=== PATIENT | male | born 1985 | race Two or more races ===

== ENCOUNTER 2022-10-18 10:55 | Emergency (ER) | payer MEDICAID, SELFPAY ==
[2022-10-18 11:12] VITALS: BP 118/80; PULSE 98; RESP 18; TEMP 36.5; O2SAT 97; BMI 42.9
--- NOTE | 2022-10-18 11:36 | ED_ITS ---
HPI - Back Pain/Injury General Chief Complaint: Back Pain/Injury Stated Complaint: Back pain Time Seen by Provider: 10/18/22 11:35 History of Present Illness HPI Narrative: Patient complains of flare up of his chronic back pain He has a chronic back pain since an accident in 2013 and never regained full use of his legs and uses a walker he denies any change in his ability to move his legs or walk there is no new weakness or numbness no incontinence, he denies any dysuria, no vomiting no fever There is no accident no trauma recently, no fever no IV drug use no chest pain no abdominal Related Data Previous Rx's Medication Instructions Recorded ibuprofen 600 mg tablet 600 mg PO Q6H PRN pain #20 tabs 10/18/22 lorazepam 1 mg tablet (Ativan) 1 mg PO BID PRN Muscle relaxer #10 10/18/22 tabs oxycodone 5 mg tablet 5 mg PO Q6H PRN pain #14 tabs 10/18/22 prednisone 20 mg tablet 60 mg PO DAILY 3 days #9 tabs 10/18/22 Allergies Allergy/AdvReac Type Severity Reaction Status Date / Time No Known Allergies Allergy Verified 10/18/22 11:12 [facility] Past Medical History Source: nursing notes reviewed Social History Social History Advance Directives: No Advance Directives Information Provided: No Physical Exam Vital Signs: Vital Signs: Last Vital Signs Temp 97.7 F 10/18/22 11:12 Pulse 98 10/18/22 11:12 Resp 18 10/18/22 11:12 BP 118/80 10/18/22 11:12 Pulse Ox 97 10/18/22 11:12 O2 Del Method 10/18/22 11:12 BMI result Body Mass Index 42.9 General appearance mildly uncomfortable Head is normocephalic atraumatic Neck is supple nontender Chest clear to auscultation bilateral The heart no murmur Abdomen soft nontender The back had tenderness along the left side of the lower lumbar soft tissue region, no focal bony tenderness, no CVA tenderness, skin of the back was normal Extremity a exam is limited due to pre-existing weakness in both legs since a trauma many years ago, but patient says it is the same as it always is No focal new neurologic deficits Course Course Course Narrative: Urinalysis was negative for infection He responded well to analgesics in the ER and felt much better and is discharged home stable, with his pre-existing disability unchanged, no new weakness or change in his ability to move his legs are ambulate Medications Administered Discontinued Medications Generic Name Dose Route Start Last Admin Trade Name Stoney PRN Reason Stop Dose Admin Ketorolac Tromethamine 30 mg 10/18/22 11:43 10/18/22 11:55 Ketorolac Tromethamine 30 Mg/Ml Vial IM 10/18/22 11:44 30 mg ONCE ONE Administration Lorazepam 1 mg 10/18/22 11:43 10/18/22 11:55 Lorazepam 1 Mg Tablet PO 10/18/22 11:44 1 mg ONCE ONE Administration Oxycodone HCl 10 mg 10/18/22 11:43 10/18/22 11:55 Oxycodone Hcl Immed Release 5 Mg Tablet PO 10/18/22 11:44 10 mg ONCE ONE Administration Medical Decision Making Lab Data Labs: Lab Results 10/18/22 Range/Units 14:00 Urine Color Dark Yellow Urine Appearance Clear Urine pH 6.0 (5.0-9.0) Ur Specific [place] >= 1.030 H (1.005-1.025) Urine Protein 30 (1+) H (Neg-Trace) mg/dL Urine Glucose (UA) Negative (Negative) mg/dL Urine Ketones Trace (Negative) mg/dL Urine Blood Negative (Negative) Urine Nitrite TNP Ur Leukocyte Esterase Trace H (Negative) Urine RBC 0-2 (0-2) /HPF Urine WBC 0-5 (0-5) /HPF Ur Squamous Epith Cells 0-2 (0-2) /HPF Urine Bacteria None Seen (None Seen) Hyaline Casts 0-2 (0-2) /LPF Discharge Plan Discharge Clinical Impression: Back pain Patient Disposition: Home, Self-Care Additional Instructions: Your urine test was negative for infection Your back pain was improved with pain medicine so use prescriptions for pain medicine to use as needed Follow with your primary doctor if pain continues I also wrote for a few days of steroid prednisone which may rib reduce pain and inflammation around the nerve that is shooting down left leg Return any time any worse condition or any concerns Prescriptions: New prednisone 20 mg tablet 60 mg PO DAILY 3 Days Qty: 9 0RF ibuprofen 600 mg tablet 600 mg PO Q6H PRN (Reason: pain) Qty: 20 0RF lorazepam [Ativan] 1 mg tablet 1 mg PO BID PRN (Reason: Muscle relaxer) Qty: 10 0RF oxycodone 5 mg tablet 5 mg PO Q6H PRN (Reason: pain) Qty: 14 0RF Rx Instructions: Partial Fill upon patient request. Interventions: ED Discharge Assessment Last Done: 10/18/22 15:06 Discharge Date/Time: 10/18/22 15:07
[2022-10-18] MEDS: LORazepam 1 MG TABLET PO (11:55)
[2022-10-18] MEDS: Ketorolac Tromethamine 30 MG/ML VIAL IM (11:55)
[2022-10-18] MEDS: oxyCODONE HCl Immed Release 5 MG TABLET 10 MG PO (11:55)
[2022-10-18 14:24] LABS: Appearance Urine Clear; Color Urine Dark Yellow; Glucose Urine UA Negative (Negative); Leukocyte Esterase Urine Trace (Negative); Specific Gravity - Urine >= 1.030 (1.005-1.025); UMIC TRIGGER UACC YES; Urine Blood Negative (Negative); Urine Ketones Trace mg/dL (Negative); Urine Protein 30 (1+) mg/dL (Neg-Trace)
[2022-10-18 14:33] LABS: Bacteria Urine None Seen (None Seen); Hyaline Casts Urine 0-2 /LPF (0-2); RBC Urine 0-2 /HPF (0-2); Squamous Epithelial Cell Urine 0-2 /HPF (0-2); WBC Urine 0-5 /HPF (0-5)
== END 2022-10-18 15:07 | disposition home or self-care (01) ==
PROVIDERS: Physician Assistant Medical; Emergency Provider Emergency Medicine
DX: M54.50 Low back pain, unspecified (principal)
CPT/HCPCS: 81001; 96372; 99283; 99284; J1885

== ENCOUNTER 2022-11-05 16:02 | Emergency (ER) | payer MEDICAID, SELFPAY ==
--- NOTE | ~2022-11-05 | XR_ITS ---
EXAMINATION: XR ABDOMEN KUB CLINICAL INDICATION: Pain COMPARISON: None TECHNIQUE: AP view of the abdomen. FINDINGS: The bowel gas pattern is normal with no evidence of ileus or obstruction. No unusual soft tissue calcifications are noted. Spinal hardware seen in the lower thoracic and upper lumbar spine. XR/XR KUB IMPRESSION: Unremarkable bowel gas pattern.
--- NOTE | ~2022-11-05 | US_ITS ---
EXAMINATION: US ABDOMEN LIMITED CLINICAL INFORMATION: Right upper quadrant pain. COMPARISON: None TECHNIQUE: Real-time imaging of the right upper quadrant abdominal viscera. FINDINGS: Pancreas is not seen due to bowel gas. The liver is within normal limits. No lesion is seen. No ductal dilatation. The gallbladder demonstrates gallstones. Positive Tao sign but no evidence of gallbladder wall edema. Common duct is 4 mm within normal limits. The right kidney measures 11.2 cm within normal limits. US/US abdomen limited IMPRESSION: Cholelithiasis here and positive Tao sign but no evidence for gallbladder wall thickening or edema. Correlation recommended clinically. No ductal dilatation..
--- NOTE | ~2022-11-05 | XR_ITS ---
EXAMINATION: XR CHEST CLINICAL INFORMATION: Chest pain COMPARISON: None TECHNIQUE: 2 views of the chest were obtained. FINDINGS: No significant abnormality is noted involving the heart, lungs, mediastinum, bony thorax or soft tissues. There are posterior Henson rods in the lumbar spine. XR/XR chest 2V IMPRESSION: Unremarkable chest examination.
[2022-11-05 16:04] VITALS: BP 128/78; PULSE 88; RESP 18; TEMP 36; O2SAT 96; BMI 41.6
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
--- NOTE | 2022-11-05 16:06 | ECG_ITS ---
Test Reason : ABDOMINAL PAIN Blood Pressure : / mmHG Vent. Rate : 095 BPM Atrial Rate : 095 BPM P-R Int : 132 ms QRS Dur : 094 ms QT Int : 372 ms P-R-T Axes : 061 051 043 degrees QTc Int : 467 ms Normal sinus rhythm Normal ECG No previous ECGs available Referred By: Gaviota Fiore Electronically Signed By:MARIA DOLORES KAISER
[2022-11-05 17:04] LABS: COVID-19 Test Negative (Negative); IDNOW Serial# 16C4AD1C
[2022-11-05 17:17] LABS: Troponin-I High Sensitivity < 3.5 ng/L (<3.5-35.0)
[2022-11-05 17:18] LABS: B Type Natriuretic Peptide < 10 pg/mL (<100)
[2022-11-05 17:40] LABS: Appearance Urine Clear; Color Urine Yellow; Glucose Urine UA Negative (Negative); Leukocyte Esterase Urine Negative (Negative); Nitrite Urine Negative (Negative); PH 5.5 (5.0-9.0); Specific Gravity - Urine 1.025 (1.005-1.025); Urine Blood Negative (Negative); Urine Ketones Negative (Negative); Urine Protein Negative (Neg-Trace)
[2022-11-05 17:50] LABS: Amphetamine Screen Urine Not Detected (Not Detect); Barbiturates, Urine Not Detected (Not Detect); Benzodiazepines Screen Urine POSITIVE (Not Detect); Cannabinoid Screen Urine Not Detected (Not Detect); Cocaine Screen Urine Not Detected (Not Detect); Fentanyl, urine Not Detected (Not Detect); Opiate Screen Urine Not Detected (Not Detect); Phencyclidine Screen Urine Not Detected (Not Detect)
[2022-11-05 17:51] LABS: Alanine Aminotransferase 54 U/L (0-40); Albumin Level 4.2 g/dL (3.5-5.0); Alkaline Phosphatase 114 U/L (39-117); Anion Gap 15 (12-20); Aspartate Amino Transferase 75 U/L (5-37); Bilirubin Total 0.4 mg/dL (0.0-1.0); Blood Urea Nitrogen 18 mg/dL (9-16); Calcium 8.9 mg/dL (8.4-10.2); Carbon Dioxide 23 mmol/L (22-29); Chloride 108 mmol/L (96-108); Creatinine Clr Calc Pharmacy 129.2; Estimated Glomerular Filt Rate > 60; Glucose Random 116 mg/dL (60-115); Magnesium 2.2 mg/dL (1.6-2.6); Potassium 4.2 mmol/L (3.3-5.1); Sodium 142 mmol/L (135-145); Total Protein 7.1 g/dL (6.5-8.0)
[2022-11-05 17:53] LABS: Basophils Percent Auto 0.5 % (0-2); Eosinophils Absolute Auto 0.2 X10*3/uL (0.0-0.4); Eosinophils Percent Auto 2.5 % (0-4); Hematocrit 43.1 % (42.0-52.0); Hemoglobin 14.2 g/dl (14.0-18.0); Imm Gran Abs Auto 0.04 X10*3/uL (0.00-0.03); Imm Gran Pct Auto 0.5 % (0.0-0.4); Lymphocytes Absolute Auto 1.5 X10*3/uL (1.2-4.9); Lymphocytes Percent Auto 19.2 % (20-40); Mean Corpuscular HGB Conc 32.9 g/dl (31.0-36.0); Mean Corpuscular Hemoglobin 28.5 pg (27.0-33.0); Mean Corpuscular Volume 86.4 fL (80.0-98.0); Mean Platelet Volume 10.2 fL (9.4-12.4); Monocytes Absolute Auto 0.4 X10*3/uL (0.1-1.2); Monocytes Percent Auto 4.5 % (2-11); Neutrophils Absolute Auto 5.9 x10*3/uL (2.0-8.3); Neutrophils Percent Auto 72.8 % (45-73); Platelet Count 266 X10*3/uL (160-400); Red Blood Count 4.99 X10*6/uL (4.60-5.80); Red Cell Distribution Width 12.3 % (11.0-16.0)
[2022-11-05 18:00] VITALS: BP 130/82; PULSE 85; RESP 16; TEMP 36.7; O2SAT 98
[2022-11-05] MEDS: Ondansetron ODT 4 MG TAB.RAPDIS TRANSLINGU (18:40)
[2022-11-05] MEDS: Lidocaine HCl Viscous 2 % 15 ML SOLUTION MUCOUS MEM (18:41)
[2022-11-05] MEDS: Magnesium Hydrox/Alum Hydrox 30 ML ORAL.SUSP PO (18:41)
== END 2022-11-05 22:06 | disposition home or self-care (01) ==
PROVIDERS: Physician Assistant Medical; Emergency Provider Student in an Organized Health Care Education/Training Program
DX: K80.20 Calculus of gallbladder without cholecystitis without obstruction (principal); R06.02 Shortness of breath; Z20.822 Contact with and (suspected) exposure to COVID-19; Z79.899 Other long term (current) drug therapy
CPT/HCPCS: 71046; 74018; 76705; 80053; 80307; 81003; 83735; 83880; 84484; 85025; 87635; 93005; 99284

== ENCOUNTER 2023-04-21 22:01 | Emergency (ER) | payer MEDICAID, SELFPAY ==
--- NOTE | ~2023-04-21 | CT_ITS ---
EXAMINATION: CT ABDOMEN AND PELVIS WITHOUT CONTRAST CLINICAL INFORMATION: Bilateral flank pain radiating to testicles COMPARISON: None available. TECHNIQUE: Multidetector volumetric imaging was performed from the superior aspect of the liver through the pubic symphysis. Sagittal and coronal reformatted images were obtained on the technologist's workstation. This CT examination was performed using dose optimization techniques as appropriate, variously including the following: *Automated exposure control *Adjustment of mA and/or kV according to patient size (this includes techniques or standardized protocols for targeted exams where dose is matched to indication/reason for exam; i.e. extremities or head) *Use of iterative reconstruction technique DLP: 846 mGy-cm FINDINGS: LUNG BASES: The visualized lung bases are unremarkable. LIVER, GALLBLADDER, AND BILIARY TREE: The liver is normal in size, shape, and attenuation. No focal hepatic lesion or biliary ductal dilatation is identified on this noncontrast exam. The gallbladder is unremarkable. PANCREAS: Mild fatty atrophy noted. SPLEEN: Borderline enlarged. ADRENAL GLANDS: Unremarkable. KIDNEYS AND URETERS: The kidneys are normal in size, shape, and attenuation. No hydronephrosis, hydroureter, or calculi seen. No perinephric stranding. BLADDER: Unremarkable. GASTROINTESTINAL TRACT: No significant wall thickening. There is some fecalization of the terminal ileum suggesting delayed intestinal transit, without specific evidence for obstruction. The appendix is unremarkable. No free fluid or free air is seen. ABDOMINAL WALL: No significant hernia is appreciated. LYMPH NODES: Normal. VASCULAR: Unremarkable. PELVIC VISCERA: Unremarkable. OSSEOUS STRUCTURES: Posterior spinal fusion hardware is present spanning T12-L2. There is heterogeneous sclerosis and partial osseous destruction of the L1 vertebral body with mild to moderate height loss which is age-indeterminate. Partial sclerosis of the T12 and L2 vertebral bodies is also noted. CT/CT abdomen pelvis wo IV con IMPRESSION: 1. No hydronephrosis or obstructing calculus identified. 2. Fecalization of the terminal ileum suggesting delayed intestinal transit, without specific evidence for obstruction. 3. Borderline splenomegaly. 4. Posterior spinal fusion hardware spanning T12-L2. Heterogeneous sclerosis and partial osseous destruction of the L1 vertebral body with mild to moderate height loss, age-indeterminate without prior studies for comparison.
[2023-04-21 22:07] VITALS: BP 147/69; PULSE 110; RESP 18; TEMP 37.1; O2SAT 97; BMI 42.3
--- NOTE | 2023-04-21 22:23 | MHC.EDTECH ---
patient blood drawn and sent to lab ,pt said he is unable to give urine sample at this time .
[2023-04-21 22:25] LABS: Basophils Absolute Auto 0.1 X10*3/uL (0.0-0.2); Basophils Percent Auto 0.8 % (0-2); Eosinophils Absolute Auto 0.2 X10*3/uL (0.0-0.4); Eosinophils Percent Auto 2.7 % (0-4); Hematocrit 44.5 % (42.0-52.0); Hemoglobin 14.8 g/dl (14.0-18.0); Imm Gran Abs Auto 0.01 X10*3/uL (0.00-0.03); Imm Gran Pct Auto 0.1 % (0.0-0.4); Lymphocytes Absolute Auto 2.5 X10*3/uL (1.2-4.9); Lymphocytes Percent Auto 32.7 % (20-40); MANUAL DIFF FLAG NO; Mean Corpuscular HGB Conc 33.3 g/dl (31.0-36.0); Mean Corpuscular Hemoglobin 28.3 pg (27.0-33.0); Mean Corpuscular Volume 85.1 fL (80.0-98.0); Mean Platelet Volume 9.8 fL (9.4-12.4); Monocytes Absolute Auto 0.4 X10*3/uL (0.1-1.2); Monocytes Percent Auto 4.7 % (2-11); Neutrophils Absolute Auto 4.4 x10*3/uL (2.0-8.3); Platelet Count 261 X10*3/uL (160-400); Red Blood Count 5.23 X10*6/uL (4.60-5.80); Red Cell Distribution Width 12.4 % (11.0-16.0); White Blood Count 7.5 X10*3/uL (4.8-10.8)
[2023-04-21 22:38] LABS: Anion Gap 13 (12-20); Blood Urea Nitrogen 22 mg/dL (9-16); Calcium 9.2 mg/dL (8.4-10.2); Carbon Dioxide 22 mmol/L (22-29); Chloride 108 mmol/L (96-108); Creatinine Clr Calc Pharmacy 136.2; Estimated Glomerular Filt Rate > 60; Glucose Random 182 mg/dL (60-115); Potassium 3.9 mmol/L (3.3-5.1); Sodium 139 mmol/L (135-145)
[2023-04-22 01:50] LABS: Appearance Urine Clear; Color Urine Yellow; Glucose Urine UA Negative (Negative); Leukocyte Esterase Urine Negative (Negative); Nitrite Urine Negative (Negative); PH 5.5 (5.0-9.0); Specific Gravity - Urine >= 1.030 (1.005-1.025); Urine Blood Negative (Negative); Urine Ketones Trace mg/dL (Negative); Urine Protein Negative (Neg-Trace)
--- NOTE | 2023-04-22 01:54 | ED.MALEGU ---
HPI - Male Genitourinary General Chief complaint: Urogenital-Male Stated complaint: back pain, unable to urinate well Time Seen by Provider: 04/22/23 01:41 Source: patient Mode of arrival: ambulatory Limitations: no limitations History of Present Illness HPI Narrative: 37-year-old male presents with bilateral flank pain. Symptoms started yesterday. They have been progressively getting worse. The symptoms are intermittent with a constant component. The pains are sharp. There radiate to bilateral testicles. It is associated with nausea but no vomiting. Had no fevers or chills. Reports difficulty urinating but no blood in the urine. There are no clear relieving or exacerbating features. Patient does have a history of spine surgery for which he takes gabapentin and Zanaflex. These medications are not assisting in his pain relief. Related Data Previous Rx's Medication Instructions Recorded ibuprofen 600 mg tablet 600 mg PO Q6H PRN pain #20 tabs 10/18/22 lorazepam 1 mg tablet (Ativan) 1 mg PO BID PRN Muscle relaxer #10 10/18/22 tabs oxycodone 5 mg tablet 5 mg PO Q6H PRN pain #14 tabs 10/18/22 prednisone 20 mg tablet 60 mg PO DAILY 3 days #9 tabs 10/18/22 gabapentin 300 mg capsule 300 mg PO TID #20 caps 04/22/23 meloxicam 15 mg tablet 15 mg PO DAILY #10 tabs 04/22/23 oxycodone 5 mg tablet 5 mg PO Q8H PRN pain #7 tabs 04/22/23 Allergies Allergy/AdvReac Type Severity Reaction Status Date / Time No Known Allergies Allergy Verified 04/21/23 22:07 Review of Systems Review of Systems: CONSTITUTIONAL: Denies weight loss, fever and chills. HEENT: Denies changes in vision and hearing. RESPIRATORY: Denies SOB and cough. CV: Denies palpitations no CP. GI: Denies abdominal pain, + nausea, - vomiting and diarrhea. : Denies dysuria and urinary frequency. MSK: + myalgia and joint pain. SKIN: Denies rash and pruritus. NEUROLOGICAL: Denies headache and syncope. PSYCHIATRIC: Denies recent changes in mood. Denies anxiety and depression. All other ROS are negative unless in HPI PMFSH Social History Social History Alcohol intake: unknown Advance Directives: No Advance Directives Information Provided: No Physical Exam Vital Signs: Vital Signs: Last Vital Signs Temp 98.7 F 04/21/23 22:07 Pulse 110 H 04/21/23 22:07 Resp 18 04/21/23 22:07 BP 147/69 H 04/21/23 22:07 Pulse Ox 97 04/21/23 22:07 O2 Del Method Room Air 04/21/23 22:07 BMI result Body Mass Index 42.3 GEN: Well developed, acute distress, alert, oriented HEENT: Normocephalic, atraumatic, normal external ears, nose appears normal, no oropharyngeal edema or exudates Eyes: Normal to appearance Neck: Supple, no lymphadenopathy Respiratory: Talks in complete sentences, no respiratory distress, clear to auscultation bilaterally Cardiovascular: Regular rate and rhythm, no murmurs rubs or gallops Abdomen: Lower abdominal tenderness with guarding no rebound Back: Bilateral CVA tenderness Extremities: No clubbing cyanosis or edema Neurologic: No focal neurologic deficits, cranial nerves 2-12 intact, strength is 5/5 bilaterally Skin: No rash Course Course Course Narrative: Patient's workup is complete. Is 330 in the morning. His pain is improved somewhat. CT scan did not demonstrate any nephrolithiasis, ureterolithiasis or acute intra-abdominal process that could be causing his pain. At this point, based on previous surgery, I suspect this could be neurologic in nature. I will discharge the patient on nonsteroidal anti-inflammatory pain medications, Tylenol. He is already on gabapentin, muscle relaxers. Will also give the patient a dose of dexamethasone. Medications Administered Discontinued Medications Generic Name Dose Route Start Last Admin Trade Name Freq PRN Reason Stop Dose Admin Sodium Chloride 1,000 mls @ 999 mls/hr 04/22/23 02:00 04/22/23 02:28 Ns IV 04/22/23 03:00 999 mls/hr .Q1H1M DOTTY Administration Ketorolac Tromethamine 15 mg 04/22/23 01:51 04/22/23 02:29 Ketorolac Tromethamine 15 Mg/Ml Vial IVPUSH 04/22/23 01:52 15 mg ONCE ONE Administration Ondansetron HCl 4 mg 04/22/23 01:55 04/22/23 02:28 Ondansetron Hcl 4 Mg/2 Ml Vial IVPUSH 04/22/23 01:56 4 mg ONCE ONE Administration Medical Decision Making Medical Decision Making [facility] Narrative: Patient presents with bilateral flank pain, lower abdominal pain difficulty urinating. Symptoms are consistent possibly with urinary tract infection, pyelonephritis or ureterolithiasis. Differential diagnosis could also include colitis, diverticulitis, epiploic appendagitis, mesenteric adenitis, IBD, IBS, bacterial overgrowth. Will obtain a CT scan the abdomen pelvis. Will provide the patient with IV analgesics, IV fluids and antiemetics. Disposition pending full evaluation. Differential Diagnosis Differential Diagnoses: The differential diagnosis associated with the presentation includes (See above) Admission/Observation Consideration of admission/observation: Escalation of care including admission/observation considered Lab Data [facility] Lab Attestation statement: I reviewed the patient's lab results. 04/21/23 22:21 04/21/23 22:21 Labs: Lab Results 04/21/23 04/21/23 04/22/23 Range/Units 22:21 22:21 01:44 WBC 7.5 (4.8-10.8) X10*3/uL RBC 5.23 (4.60-5.80) X10*6/uL Hgb 14.8 (14.0-18.0) g/dl Hct 44.5 (42.0-52.0) % MCV 85.1 (80.0-98.0) fL MCH 28.3 (27.0-33.0) pg MCHC 33.3 (31.0-36.0) g/dl RDW 12.4 (11.0-16.0) % Plt Count 261 (160-400) X10*3/uL MPV 9.8 (9.4-12.4) fL Immature Gran % (Auto) 0.1 (0.0-0.4) % Neut % (Auto) 59.0 (45-73) % Lymph % (Auto) 32.7 (20-40) % [place] % (Auto) 4.7 (2-11) % Eos % (Auto) 2.7 (0-4) % Baso % (Auto) 0.8 (0-2) % Lymph # (Auto) 2.5 (1.2-4.9) X10*3/uL [place] # (Auto) 0.4 (0.1-1.2) X10*3/uL Eos # (Auto) 0.2 (0.0-0.4) X10*3/uL Baso # (Auto) 0.1 (0.0-0.2) X10*3/uL Abs Immat Gran (auto) 0.01 (0.00-0.03) X10*3/uL Absolute Neuts (auto) 4.4 (2.0-8.3) x10*3/uL Absolute Nucleated RBC 0.000 (0.0-0.012) X10*3/uL Nucleated RBC % (auto) 0.0 (0.0-0.2) /100WBC Sodium 139 (135-145) mmol/L Potassium 3.9 (3.3-5.1) mmol/L Chloride 108 (96-108) mmol/L Carbon Dioxide 22 (22-29) mmol/L Anion Gap 13 (12-20) BUN 22 H (9-16) mg/dL Creatinine 0.91 (0.5-1.4) mg/dL Estim Creat Clear Calc 136.2 Estimated GFR > 60 Random Glucose 182 H (60-115) mg/dL Calcium 9.2 (8.4-10.2) mg/dL Urine Color Yellow Urine Appearance Clear Urine pH 5.5 (5.0-9.0) Ur Specific [place] >= 1.030 H (1.005-1.025) Urine Protein Negative (Neg-Trace) mg/dL Urine Glucose (UA) Negative (Negative) mg/dL Urine Ketones Trace (Negative) mg/dL Urine Blood Negative (Negative) Urine Nitrite Negative (Negative) Ur Leukocyte Esterase Negative (Negative) Urine RBC 0-2 (0-2) /HPF Urine WBC 0-5 (0-5) /HPF Ur Squamous Epith Cells 0-2 (0-2) /HPF Urine Bacteria None Seen (None Seen) Hyaline Casts 0-2 (0-2) /LPF Independent Interpretation I performed an independent interpretation of an: CT Scan (Abdomen pelvis: No acute intra-abdominal findings) Radiology Impression Discussion of test interpretation with radiology: I have reviewed the radiologist's reading. Radiologist Impression: CT/CT abdomen pelvis wo IV con IMPRESSION: 1.? No hydronephrosis or obstructing calculus identified. 2.? Fecalization of the terminal ileum suggesting delayed intestinal transit, without specific evidence for obstruction. 3.? Borderline splenomegaly. 4.? Posterior spinal fusion hardware spanning T12-L2. Heterogeneous sclerosis and partial osseous destruction of the L1 vertebral body with mild to moderate height loss, age-indeterminate without prior studies for comparison. ? Dictated By: Tawanda Velasquez MD Signed By: <Electronically signed by Tawanda Velasquez MD in OV> 04/22/23 0247 Prescription Management I considered prescription management with: Pain Medication and Antibiotic Discharge Plan Discharge Clinical Impression: Acute flank pain Patient Disposition: Home, Self-Care Instructions: Lumbar Radiculopathy (ED), Flank Pain (ED) Prescriptions: New meloxicam 15 mg tablet 15 mg PO DAILY Qty: 10 0RF oxycodone 5 mg tablet 5 mg PO Q8H PRN (Reason: pain) Qty: 7 0RF Rx Instructions: Partial Fill upon patient request. gabapentin 300 mg capsule 300 mg PO TID Qty: 20 0RF No Action prednisone 20 mg tablet 60 mg PO DAILY 3 Days Qty: 9 0RF ibuprofen 600 mg tablet 600 mg PO Q6H PRN (Reason: pain) Qty: 20 0RF lorazepam [Ativan] 1 mg tablet 1 mg PO BID PRN (Reason: Muscle relaxer) Qty: 10 0RF oxycodone 5 mg tablet 5 mg PO Q6H PRN (Reason: pain) Qty: 14 0RF Rx Instructions: Partial Fill upon patient request. Referrals: Elroy Wills MD, PhD [Physician] - Stand Alone Forms: Work/School Release
[2023-04-22 01:55] LABS: Bacteria Urine None Seen (None Seen); Hyaline Casts Urine 0-2 /LPF (0-2); RBC Urine 0-2 /HPF (0-2); Squamous Epithelial Cell Urine 0-2 /HPF (0-2); WBC Urine 0-5 /HPF (0-5)
[2023-04-22] MEDS: ondansetron HCL 4 MG/2 ML VIAL IVPUSH (02:28)
[2023-04-22] MEDS: 0.9 % Sodium Chloride 1,000 ML 999 ML IV (02:28)
[2023-04-22] MEDS: Ketorolac Tromethamine 15 MG/ML VIAL IVPUSH (02:29)
[2023-04-22] MEDS: dexAMETHasone sod phosphate 10 MG/ML VIAL IVPUSH (03:59)
[2023-04-22 04:12] VITALS: BP 130/72; PULSE 82; RESP 17; TEMP 36.8; O2SAT 100
== END 2023-04-22 04:12 | disposition home or self-care (01) ==
PROVIDERS: Emergency Provider Emergency Medicine
DX: M54.50 Low back pain, unspecified (principal); R33.9 Retention of urine, unspecified; R10.9 Unspecified abdominal pain; Z79.899 Other long term (current) drug therapy
CPT/HCPCS: 36415; 74176; 80048; 81001; 85025; 96374; 96375; 99283; 99284; J1100; J1885; J2405

== ENCOUNTER 2023-06-01 09:40 | Outpatient (REF) | payer MEDICAID, SELFPAY | END 2023-06-01 09:41 | disposition home or self-care (01) | LOC: HO.HHCL 09:40 | PROVIDERS: Visit Provider Registered Nurse | DX: R73.03 Prediabetes (principal) | CPT/HCPCS: 36415; 80061; 83036 ==

== ENCOUNTER 2025-03-26 18:22 | Emergency (ER) | payer OTHER, SELFPAY ==
--- NOTE | ~2025-03-26 | CT_ITS ---
CLINICAL HISTORY: R flank pain CT abdomen and pelvis without contrast Comparison: None provided Findings: Mild bibasilar atelectasis and scarring with emphysematous changes in the [id number]. Fat deposition of the liver and/or steatotic change. Cholelithiasis present. Mild-moderate volume loss of the pancreas. Mild/borderline adrenal hyperplasia. Splenomegaly with spleen measuring 14 cm. No hydronephrosis of the either imaged kidney in this noncontrast study. Artifacts noted. Small mesenteric and periaortic lymph nodes are nonspecific and likely reactive. No small bowel obstruction. Imaged appendix within normal limits (imaged 511 of series 4). Mild fluid is change adjacent to distal sigmoid colon and rectum can be seen with colitis and proctitis. Severe stool burden present, including imaged cecum. The prostate gland measures 3.5 cm transverse. Mild distention of the urinary bladder with mild/minimal wall thickening. Mild osteoarthritis of the hips. Posterior instrumentation of the bilateral pedicle screws in the T12 and L2. Left-sided pedicle screw also in the L1 with mild-moderate height loss of the chronic appearing old compression fracture. Subcutaneous edema noted, particularly dependently. IMPRESSION: 1. Mild stranding about distal large intestine is nonspecific and may reflect mild distal colitis. No small bowel obstruction. 2. Cholelithiasis by CT. 3. Splenomegaly. 4. Partially imaged emphysematous changes. This document has been electronically signed by: Sreekanth Núñez MD on 03/26/2025 23:01:41
[2025-03-26 18:54] VITALS: BP 130/77; PULSE 101; RESP 17; TEMP 36.9; O2SAT 94; BMI 42.4
--- NOTE | 2025-03-26 18:54 | ED_ITS ---
HPI - General Adult General Chief complaint: Abdominal Pain Stated complaint: rt side lumbar pain, sent from urgent care for xr Time Seen by Provider: 03/26/25 22:00 Source: patient Mode of arrival: ambulatory Limitations: no limitations History of Present Illness ED Provider: Dr. Ana Masterson HPI narrative: Patient comes to the emergency room complaining of 2 days of right-sided flank pain. Patient also states that he usually urinates multiple times a day and now he is only urinating once a day. Patient has no difficulty urinating, just the amount decreased significantly. Patient denies nausea vomiting or diarrhea, denies fever chills. Patient states that the right-sided flank pain is intermittent, radiates from the right flank towards the groin area. Patient states that he usually has chronic pain, has history of spinal fusion in T12 through L2. Patient states that the pain is different, this time is on the flank, denies any injuries or heavy lifting. Related Data Previous Rx's ?Medication ?Instructions ?Recorded ibuprofen 600 mg tablet 600 mg PO Q6H PRN pain #20 t abs 10/18/22 lorazepam 1 mg tablet (Ativan) 1 mg PO BID PRN Muscle relaxer #10 10/18/22 tabs oxycodone 5 mg tablet 5 mg PO Q6H PRN pain #14 tab s 10/18/22 prednisone 20 mg tablet 60 mg (3 x 20 mg) PO DAILY 3 days 10/18/22 #9 tabs gabapentin 300 mg capsule 300 mg PO TID #20 caps 04/22 meloxicam 15 mg tablet 15 mg PO DAILY #10 tabs 03/29 02/17 oxycodone 5 mg tablet 5 mg PO Q8H PRN pain #7 tabs 04/22/23 cyclobenzaprine 5 mg tablet 5 mg PO TID PRN muscle spa sm #10 03/27/25 tabs tamsulosin 0.4 mg capsule (Flomax) 0.4 mg PO BEDTIME # 20 caps 03/27/25 Allergies Allergy/AdvReac Type Severity Reaction Status Date / Time No Known Allergies Allergy Verified 03/26/25 18:54 Review of Systems 2 Review of Systems: Constitutional : No Weight loss, No Fever, No Chills, No Night Sweats, No Fatigue, No Malaise ENT/Mouth : No Hearing loss, No Ear Pain, No Nasal Congestion, No Sinus Pain, No Hoarseness, No sore throat, No Rhinorrhea, No Swallowing Difficulty Eyes: No Eye Pain, No Swelling, No Redness, No Foreign Body, No Discharge, No Vision Changes Cardiovascular : No Chest Pain, No SOB, No Dyspnea on Exertion, No Orthopnea, No Edema, No Palpitations Respiratory : No Cough, No Sputum, No Wheezing, No Smoke Exposure, No Dyspnea Gastrointestinal : No Nausea, No Vomiting, No Diarrhea, No Constipation, No abdominal Pain, No Hematochezia, No Melena Genitourinary : no irregular bleeding, No Dysuria, No Urinary Frequency, No Hematuria, No Urinary Incontinence, No Urgency, complaining of right-sided Flank Pain, complaining that he is urinating once a day instead of multiple times a day as he usually does Musculoskeletal : No joint pain, No Myalgias, No Joint Swelling Skin : No Skin Lesions, No rash Neuro : No Weakness, No Numbness, No Paresthesias, No Loss of Consciousness, No Dizziness, No Headache Psych : No Anxiety/Panic, No Depression, No SI/HI/AH/VH, No Social Issues, Heme/Lymph: No Bruising, No Bleeding,No Lymphadenopathy Endocrine : No Polyuria, No Polydipsia, No Temperature Intolerance [facility] Past Medical History Surgical History (Updated 03/26/25 @ 22:10 by Ana Masterson MD) History of spinal fusion Social History Social History Alcohol intake: unknown Advance Directives: No Advance Directives Information Provided: No Physical Exam ED Exam Exam: Appearance: Alert. Oriented X3. No acute distress. Well-appearing Eyes: Pupils equal, round and reactive to light. ENT: Pharynx normal. Neck: Normal inspection. Neck supple. No lymph nodes noted. No crepitus CVS: Normal heart rate and rhythm. Pulses normal. Normal S1 and S2 Respiratory: No respiratory distress. Breath sounds normal. No Wheezing. No rales Abdomen: Soft and nontender. No rigidity. No distention. Mild right CVA tenderness Skin: Skin warm and dry. Normal skin color. Normal skin turgor. Extremities: No lower extremity edema. No Lacerations. No Rash Neuro: Oriented X 3. No motor deficit. No sensory deficit. Moving all extremities. No slurred speech. CN 2 through 12 grossly intact Psych: calm, cooperative, normal affect Vital Signs: Vital Signs - 24 hr 03/26/25 18:54 03/26/25 21:50 03/26/25 23:57 Temperature 98.4 F 98.5 F 97.8 F Pulse Rate 101 H 96 94 Respiratory Rate 17 18 20 Blood Pressure 130/77 135/70 131/82 Pulse Oximetry 94 95 99 Oxygen Delivery Method Room Air Room Air Room Air BMI result Body Mass Index 42.4 Course Course Course Narrative: RME, this is a rapid medical exam performed by Osvaldo Sheppard please refer to primary provider for complete H&P- 39 year old male presents for evaluation of lower back pain on the right and difficulty urinating. He reports that he is only urinating about once per day which is abnormal for him. Denies any blood in the urine. Plan for labs and urinalysis Medications Administered Discontinued Medications Generic Name Dose Route Start Last Admin Trade Name Freq PRN Reason Stop Dose Admin Ketorolac Tromethamine 60 mg 03/26/25 22:05 03/26/25 22:39 Ketorolac Tromethamine 60 Mg/2 Ml Vial IM 03/26/25 22:06 60 mg ONCE ONE Administration Medical Decision Making Medical Decision Making [facility] Narrative: My interpretation of labs: No significant abnormality in patient's hematology and chemistry, normal LFTs, normal lipase, urinalysis negative for UTI CT scan is not specific, mild distal colitis? Cholelithiasis, splenomegaly. None of them really explain the patient's right flank pain. CT scan was read as possible colitis. However, patient has no abdominal pain, no bloating no distention nausea vomiting or diarrhea. Pain most likely to be musculoskeletal, urinalysis negative, no UTI or pyelonephritis or kidney stone. Patient states that he used to take Flomax, patient states that he used to take it in the past, has not get any refills from his PCP. Patient denies any prostate pathology to his knowledge. Discussed with the patient that in the meantime I can give him a small prescription but he needs to have close follow- up with the PCP as more thorough assessment regarding prostate issues may be needed Differential Diagnosis Differential Diagnoses: The differential diagnosis associated with the presentation includes (Musculoskeletal pain, ureterolithiasis, pyelonephritis) Admission/Observation Consideration of admission/observation: Escalation of care including admission/observation considered (Given patient's symptoms, observation was considered) Lab Data [facility] Lab Attestation statement: I reviewed the patient's lab results. 03/26/25 19:09 03/26/25 19:09 Labs: Lab Results 03/26/25 03/26/25 Range/Units 19:09 23:56 WBC 7.4 (4.8-10.8) X10*3/uL RBC 4.84 (4.60-5.80) X10*6/uL Hgb 14.2 (14.0-18.0) g/dl Hct 41.0 L (42.0-52.0) % MCV 84.7 (80.0-98.0) fL MCH 29.3 (27.0-33.0) pg MCHC 34.6 (31.0-36.0) g/dl RDW 12.6 (11.0-16.0) % Plt Count 224 (160-400) X10*3/uL MPV 10.2 (9.4-12.4) fL Immature Gran % (Auto) 0.3 (0.0-0.4) % Neut % (Auto) 68.2 (45-73) % Lymph % (Auto) 24.3 (20-40) % [place] % (Auto) 4.9 (2-11) % Eos % (Auto) 1.8 (0-4) % Baso % (Auto) 0.5 (0-2) % Lymph # (Auto) 1.8 (1.2-4.9) X10*3/uL [place] # (Auto) 0.4 (0.1-1.2) X10*3/uL Eos # (Auto) 0.1 (0.0-0.4) X10*3/uL Baso # (Auto) 0.0 (0.0-0.2) X10*3/uL Abs Immat Gran (auto) 0.02 (0.00-0.03) X10*3/uL Absolute Neuts (auto) 5.1 (2.0-8.3) x10*3/uL Absolute Nucleated RBC 0.000 (0.0-0.012) X10*3/uL Nucleated RBC % (auto) 0.0 (0.0-0.2) /100WBC Sodium 143 (135-145) mmol/L Potassium 4.0 (3.3-5.1) mmol/L Chloride 111 H (96-108) mmol/L Carbon Dioxide 22 (22-29) mmol/L Anion Gap 14 (12-20) BUN 20 H (9-16) mg/dL Creatinine 1.01 (0.5-1.4) mg/dL Estim Creat Clear Calc 124.5 Estimated GFR > 60 Random Glucose 228 H (60-115) mg/dL Calcium 9.0 (8.4-10.2) mg/dL Total Bilirubin 0.4 (0.0-1.0) mg/dL AST 29 (5-37) U/L ALT 39 (0-40) U/L Alkaline Phosphatase 93 (39-117) U/L Total Protein 7.4 (6.5-8.0) g/dL Albumin 4.4 (3.5-5.0) g/dL Lipase 10 (8-78) U/L Urine Color Dark Yellow Urine Appearance Clear Urine pH 5.5 (5.0-9.0) Ur Specific [place] >= 1.030 H (1.005-1.025) Urine Protein Trace (Neg-Trace) mg/dL Urine Glucose (UA) 500 H (Negative) mg/dL Urine Ketones Trace (Negative) mg/dL Urine Blood Negative (Negative) Urine Nitrite Negative (Negative) Ur Leukocyte Esterase Negative (Negative) Urine RBC 0-2 (0-2) /HPF Urine WBC 0-5 (0-5) /HPF Ur Squamous Epith Cells 3-5 (0-2) /HPF Urine Bacteria None Seen (None Seen) Hyaline Casts 3-5 (0-2) /LPF Independent Interpretation I performed an independent interpretation of an: CT Scan Radiology Impression Discussion of test interpretation with radiology: I have reviewed the radiologist's reading. Radiologist Impression: Findings: Mild bibasilar atelectasis and scarring with emphysematous changes in the [id number]. Fat deposition of the liver and/or steatotic change. Cholelithiasis present. Mild-moderate volume loss of the pancreas. Mild/borderline adrenal hyperplasia. Splenomegaly with spleen measuring 14 cm. No hydronephrosis of the either imaged kidney in this noncontrast study. Artifacts noted. Small mesenteric and periaortic lymph nodes are nonspecific and likely reactive. No small bowel obstruction. Imaged appendix within normal limits (imaged 511 of series 4). Mild fluid is change adjacent to distal sigmoid colon and rectum can be seen with colitis and proctitis. Severe stool burden present, including imaged cecum. The prostate gland measures 3.5 cm transverse. Mild distention of the urinary bladder with mild/minimal wall thickening. Mild osteoarthritis of the hips. Posterior instrumentation of the bilateral pedicle screws in the T12 and L2. Left-sided pedicle screw also in the L1 with mild-moderate height loss of the chronic appearing old compression fracture. Subcutaneous edema noted, particularly dependently. IMPRESSION: 1. Mild stranding about distal large intestine is nonspecific and may reflect mild distal colitis. No small bowel obstruction. 2. Cholelithiasis by CT. 3. Splenomegaly. 4. Partially imaged emphysematous changes. Critical Care Time Critical Care Time Critical Care Time: Yes Total Critical Care Time: 35 Attestation: I have personally provided critical care time. Time includes review of lab data, radiology results, discussion with consultants, and monitoring for potential decompensation. Intervention performed as documented. Discharge Plan Discharge Clinical Impression: Right flank pain Patient Disposition: Home, Self-Care Instructions: Flank Pain (ED) Additional Instructions: Please follow-up with your primary care physician tomorrow. If you have any worsening or new symptoms, please return to the emergency room or call 911 Prescriptions: New cyclobenzaprine 5 mg tablet 5 mg PO TID PRN (Reason: muscle spasm) Qty: 10 0RF tamsulosin [Flomax] 0.4 mg capsule 0.4 mg PO BEDTIME Qty: 20 0RF No Action prednisone 20 mg tablet 60 mg PO DAILY 3 Days Qty: 9 0RF ibuprofen 600 mg tablet 600 mg PO Q6H PRN (Reason: pain) Qty: 20 0RF lorazepam [Ativan] 1 mg tablet 1 mg PO BID PRN (Reason: Muscle relaxer) Qty: 10 0RF oxycodone 5 mg tablet 5 mg PO Q6H PRN (Reason: pain) Qty: 14 0RF Rx Instructions: Partial Fill upon patient request. meloxicam 15 mg tablet 15 mg PO DAILY Qty: 10 0RF oxycodone 5 mg tablet 5 mg PO Q8H PRN (Reason: pain) Qty: 7 0RF Rx Instructions: Partial Fill upon patient request. gabapentin 300 mg capsule 300 mg PO TID Qty: 20 0RF Print Language: Taj[place]
[2025-03-26 19:15] LABS: MANUAL DIFF FLAG NO
[2025-03-26 19:18] LABS: Hematocrit 41.0 % (42.0-52.0); Hemoglobin 14.2 g/dl (14.0-18.0); Imm Gran Abs Auto 0.02 X10*3/uL (0.00-0.03); Imm Gran Pct Auto 0.3 % (0.0-0.4); Lymphocytes Absolute Auto 1.8 X10*3/uL (1.2-4.9); Mean Corpuscular HGB Conc 34.6 g/dl (31.0-36.0); Mean Corpuscular Hemoglobin 29.3 pg (27.0-33.0); Mean Corpuscular Volume 84.7 fL (80.0-98.0); NRBC Abs Auto 0.000 X10*3/uL (0.0-0.012); NRBC Pct Auto 0.0 /100WBC (0.0-0.2); Platelet Count 224 X10*3/uL (160-400); Red Blood Count 4.84 X10*6/uL (4.60-5.80); White Blood Count 7.4 X10*3/uL (4.8-10.8)
[2025-03-26 19:35] LABS: Alanine Aminotransferase 39 U/L (0-40); Albumin Level 4.4 g/dL (3.5-5.0); Alkaline Phosphatase 93 U/L (39-117); Anion Gap 14 (12-20); Aspartate Amino Transferase 29 U/L (5-37); Blood Urea Nitrogen 20 mg/dL (9-16); Calcium 9.0 mg/dL (8.4-10.2); Carbon Dioxide 22 mmol/L (22-29); Chloride 111 mmol/L (96-108); Creatinine Clr Calc Pharmacy 124.5; Estimated Glomerular Filt Rate > 60; Lipase 10 U/L (8-78); Potassium 4.0 mmol/L (3.3-5.1); Sodium 143 mmol/L (135-145); Total Protein 7.4 g/dL (6.5-8.0)
--- OUTSIDE RECORDS SUMMARY | 2025-03-26 21:41 | XMS_ITS | Clinical Summary ---
[facility] Organization [facility] Address [address] [place] [address] Care Team Providers Care Food Service Name Role Phone Unavailable Primary Care Provider Unavailabl e Social History Tobacco Use Types Packs/Day Years Used Date Smoking Tobacco: Never Assessed Sex and Gender Information Value Date Recorded Sex Assigned at Not on file Legal Sex Male 11:17 AM EST Gender Identity Not on file Sexual Orientation Not on file Plan of Treatment Health Maintenance Due Date Last Done Comments DTaP,Tdap,and Td Vaccines (1 - Tdap) 2005 Hepatitis B Vaccines (1 of 3 - 19+ 3-dose series) 2005 Cholesterol Screening (Lipid Panel) 07/26/2022 HIV Screening 07/26/2022 Hepatitis C Screening 07/26/2022 Social Influencers of Health Screening 07/26/2022 COVID-19 Vaccine (1 - 2023-2 5 season) 2024 Depression Screening 08/28/2024 Influenza Vaccine (#1) 2025 HIB Vaccines Aged Out No longer eligi ble based on patient's age to complete this topic HPV Vaccines Aged Out No longer eligi ble based on patient's age to complete this topic Hepatitis A Vaccines Aged Out No long er eligible based on patient's age to complete this topic IPV Vaccines Aged Out No longer eligi ble based on patient's age to complete this topic MMR Vaccines Aged Out No longer eligi ble based on patient's age to complete this topic Meningococcal ACWY Vaccine Aged Out N o longer eligible based on patient's age to complete this topic Meningococcal B Vaccine Aged Out No l onger eligible based on patient's age to complete this topic Pneumococcal Vaccine: Pediat rics (0 to 5 Years) and At-Risk Patients (6 to 49 Years) Aged Out No longer eligible b ased on patient's age to complete this topic RSV Immunization Patients Un abhijit 20 months Aged Out No longer eligible b ased on patient's age to complete this topic Varicella Vaccines Aged Out No longer eligible based on patient's age to complete this topic
[2025-03-26 21:50] VITALS: BP 135/70; PULSE 96; RESP 18; TEMP 36.9; O2SAT 95
[2025-03-26 23:57] VITALS: BP 131/82; PULSE 94; RESP 20; TEMP 36.6; O2SAT 99
[2025-03-27 00:04] LABS: Appearance Urine Clear; Glucose Urine UA 500 mg/dL (Negative); PH 5.5 (5.0-9.0); Specific Gravity - Urine >= 1.030 (1.005-1.025)
--- NOTE | 2025-03-27 01:07 | PC.NURSE ---
reviewed discharge instructions with pt. pt verbalized understanding, no sign of distress.
[2025-03-27 01:08] VITALS: BP 131/82; PULSE 94; RESP 20; TEMP 36.6; O2SAT 99
== END 2025-03-27 01:08 | disposition home or self-care (01) ==
PROVIDERS: Physician Assistant; Emergency Provider Emergency Medicine; PCP Internal Medicine
DX: R10.9 Unspecified abdominal pain (principal); K80.20 Calculus of gallbladder without cholecystitis without obstruction; R16.1 Splenomegaly, not elsewhere classified
CPT/HCPCS: 36415; 74176; 80053; 81001; 83690; 85025; 96372; 99284; J1885

== ENCOUNTER → 2025-03-26 22:05 | Outpatient (BNV) | payer OTHER, SELFPAY | PROVIDERS: Emergency Provider Emergency Medicine; PCP Internal Medicine; Visit Provider Radiology Neuroradiology | DX: K80.20 Calculus of gallbladder without cholecystitis without obstruction (principal) | CPT/HCPCS: 74176 ==